=== PATIENT | male | born 1980 | race Caucasian/White ===

== ENCOUNTER 2016-12-25 06:50 | Day surgery (SDC) | payer OTHER ==
[~2016-12-25] VITALS: Ht 185.4 cm; Wt 88.5 kg
[~2016-12-25 06:50] MED LIST: ACET325T51 PO; DICY10CA56 PO; ESOM20CA28 PO; LOPE2TAB32 PO; Sodium Chloride LOK Flush 10 mL Syringe IV PRN; fentaNYL-PF 50 mCg/mL 2 mL Inj IVPUSH PRN
[2016-12-25 07:41] VITALS: BP 119/74; PULSE 60; RESP 12; O2SAT 97
[2016-12-25] MEDS ORDERED: 0.9% Sodium Chloride 1,000 ML IV ONE (07:50)
[2016-12-25 08:26] VITALS: BP 118/69; PULSE 66; RESP 16; O2SAT 95
[2016-12-25 08:36] VITALS: BP 133/73; PULSE 87; RESP 16; O2SAT 99
[2016-12-25 08:46] VITALS: BP 118/76; PULSE 74; RESP 16; O2SAT 98
--- NOTE | 2016-12-25 16:31 | ENDO ---
[address] [address] ENDOSCOPY PROCEDURE PATIENT: DENNYS DO : 1980 MR#: [id number] ADMIT: 12/25/2016 JOB ID: [id number] TYPE OF OPERATION: Esophagogastroduodenoscopy, biopsy, colonoscopy. PREOPERATIVE DIAGNOSIS(ES): Diarrhea and gastroesophageal reflux disease. POSTOPERATIVE DIAGNOSIS(ES): 1. Small hiatal hernia. 2. Normal colonoscopy, status post biopsy. ANESTHESIA: Fentanyl 125 mcg, Versed 7 mg IV administered. COMPLICATIONS: None. BLOOD LOSS: Minimal. DESCRIPTION OF PROCEDURE: After risks and benefits explained to patient, informed consent was obtained and after anesthesia administered, upper endoscope was then inserted in mouth intubating to the esophagus, stomach, second portion of the duodenum. Mucosa carefully examined. After procedure was done, the scope was withdrawn and the procedure terminated. FINDINGS: Upon inspection of the esophagus, esophagus was normal without masses, ulcers, or lesions. Z-line located at 40 cm from the incisors. Upon entering the stomach, it was also normal without masses, ulcers, or lesions. Retroflexion showed small hiatal hernia. Duodenal bulb, first and second portion normal. Biopsies taken at the duodenum, antrum, body and distal esophagus. Upon inspection of the anus, no masses, hemorrhoids, ulcers, fissures that were seen throughout the entire examination. There were no polyps, masses, or lesions. Biopsies taken of the terminal ileum and random colon. Retroflexion was normal. IMPRESSION: 1. Normal colonoscopy, status post biopsy. 2. Small hiatal hernia. RECOMMENDATIONS: Await pathology results. Follow up in GI clinic as needed.
--- NOTE | 2016-12-28 14:56 | PATH ---
SURGICAL PATHOLOGY Attending Physician:Bruno Orozco MD CASE STATUS: Signed Out PATIENT NAME: DENNYS DO PID: [id number] : 1980 DATE COLLECTED:12/25/2016 15:38 SPECIMEN: 1: Duodenum, Biopsy 2: Stomach, Antrum, Biopsy 3: Gastric, Biopsy 4: Esophagus, Biopsy 5: Ileum, Biopsy 6: Colon, Biopsy CLINICAL HISTORY: 1. DUODENUM BX 2. ANTRUM BX 3. BODY BX 4. DISTAL ESOPHAGUS BX 5. TI BX 6.RANDOM BX COLON FINAL DIAGNOSIS: 1.DUODENUM BIOPSY: FRAGMENTS OF NORMAL-APPEARING DUODENUM MUCOSA. Normal delicate mucosal villi present. Negative for significant inflammation, dysplasia and malignancy. 2.GASTRIC ANTRUM BIOPSY: MILD CHRONIC GASTRITIS INVOLVING ANTRAL MUCOSA. Negative for evidence of Helicobacter. Negative for intestinal metaplasia. Negative for dysplasia and malignancy. 3.GASTRIC BODY BIOPSY: FRAGMENTS OF GASTRIC FUNDIC MUCOSA WITHOUT SIGNIFICANT INFLAMMATION. Negative for evidence of Helicobacter. Negative for intestinal metaplasia. Negative for dysplasia and malignancy. 4.DISTAL ESOPHAGUS BIOPSY: FRAGMENTS OF SQUAMOUS EPITHELIUM WITH NO GASTRIC-TYPE EPITHELIUM IDENTIFIED. Negative for atypia and malignancy. Negative for intraepithelial eosinophils. 5.TERMINAL ILEUM BIOPSY: FRAGMENTS OF NORMAL-APPEARING TERMINAL ILEUM MUCOSA. Negative for granulomas. Negative for significant inflammation, dysplasia and malignancy. 6.RANDOM BIOPSIES, COLON: FRAGMENTS OF NORMAL-APPEARING COLON MUCOSA. Negative for significant architectural distortion. Negative for significant inflammation, dysplasia and malignancy. ICD10 code K29.70 GROSS DESCRIPTION: The specimen is received in six formalin filled containers labeled with the patient's name. 1). The specimen is sublabeled "duodenum" and consists of 2 portions of tissue which aggregate to 0.3 x 0.3 x 0.2 CM. The specimen is entirely submitted in cassettes 1A. 2). The specimen is sublabeled "antrum" and consists of 2 portions of tissue which aggregate to 0.3 x 0.3 x 0.2 CM. The specimen is entirely submitted in cassette 2A. 3). The specimen is sublabeled "body" and consists of 2 portions of tissue which aggregate to 0.4 x 0.3 x 0.2 CM. The specimen is entirely submitted in cassette 3A. 4). The specimen is sublabeled "distal esophagus" and consists of a 0.2 x 0.2 x 0.2 CM portion of tissue which is entirely submitted in cassette 4A. 5). The specimen is sublabeled " TI " and consists of 2 portions of tissue which aggregate to 0.3 x 0.3 x 0.2 CM. The specimen is entirely submitted in cassette 5A. 6). The specimen is sublabeled "random colon" and consists of 5 portions of tissue which aggregate to 0.3 x 0.3 x 0.2 CM. The specimen is entirely submitted in cassette 6A. 12/25/2016 DAC MICRO DESCRIPTION: See diagnosis. ICD-9 CODES: CPT CODES: 1: 86735 2: 59197 3: 05332 4: 89811 5: 09821 6: 09273 Electronically Signed Out Callum Bullock MD [facility] Pathology [facility] [address], [place] [address] Technical component performed at [facility], [facility] [address], [place], [address]
== END 2016-12-25 23:59 | disposition home or self-care (01) ==
LOC: END 06:50
PROVIDERS: ATTEND Internal Medicine Gastroenterology
DX: R19.7 Diarrhea, unspecified (principal); K21.9 Gastro-esophageal reflux disease without esophagitis; K44.9 Diaphragmatic hernia without obstruction or gangrene
CPT/HCPCS: 43239; 45380; 88305; G0500; J7030